=== PATIENT | male | born 1990 | race African-American/Black ===

== ENCOUNTER 2024-07-08 08:43 | Emergency (ER) | payer OTHER ==
[~2024-07-08] VITALS: Ht 182.9 cm; Wt 104.5 kg
[2024-07-08 08:48] VITALS: BP 116/74; PULSE 68; RESP 18; TEMP 98.9; O2SAT 99
[2024-07-08 09:15] LABS: APPEARANCE,URINE CLEAR (CLEAR); BILIRUBIN,URINE NEGATIVE (NEGATIVE); COLOR,URINE LIGHT YELLOW (YELLOW); GLUCOSE, URINE (UA) NEGATIVE (NEGATIVE); KETONES,URINE NEGATIVE (NEGATIVE); LEUKOCYTE ESTERASE ,URINE NEGATIVE (NEGATIVE); NITRATE,URINE NEGATIVE (NEGATIVE); OCCULT BLOOD,URINE NEGATIVE (NEGATIVE); PH,URINE 7.5 (5.0-8.0); PROTEIN,URINE TRACE mg/dL (NEGATIVE); SPECIFIC GRAVITIY, URINE 1.025 (1.003-1.030); UROBILINOGEN,URINE <=1.0 mg/dL (<=1.0)
[2024-07-08 09:16] LABS: BASOPHILS % (AUTO) 1.4 % (0.0-2.0); EOSINOPHILS % (AUTO) 1.4 % (1.0-6.0); HEMATOCRIT 48.9 % (41-53); HEMOGLOBIN 15.7 g/dL (13.5-17.5); LYMPHOCYTES # (AUTO) 1.3 K/uL (1.0-4.8); LYMPHOCYTES % (AUTO) 36.8 % (22.0-44.0); MEAN CORPUSCULAR HEMOGLOBIN 27.3 pg (26.0-34.0); MEAN CORPUSCULAR HGB CONC 32.1 G/dL (31.0-37.0); MEAN CORPUSCULAR VOLUME 85 fL (80-100); MONOCYTES # (AUTO) 0.6 K/uL (0.1-1.0); MONOCYTES % (AUTO) 17.3 % (2.0-9.0); NEUTROPHILS # (AUTO) 1.5 K/uL (1.8-7.7); NEUTROPHILS % (AUTO) 43.1 % (40.0-70.0); PLATELET COUNT (AUTO) 146 K/uL (150-450); RED BLOOD CELL COUNT(AUTO) 5.75 MIL/uL (4.50-5.90); RED CELL DISTRIBUTION WIDTH 14.3 % (11.5-14.5); WHITE BLOOD COUNT (AUTO) 3.5 K/uL (4.5-11.0)
[2024-07-08 09:19] LABS: ANION GAP 6 mmol/L (8-16); CALCIUM, TOTAL 8.5 mg/dL (8.8-10.5); CARBON DIOXIDE 28 mmol/L (22-29); CHLORIDE 106 mmol/L (98-107); CREATININE 1.04 mg/dL (0.60-1.30); GLOMERULAR FILTR. RATE CALC > 60 mL/min (>60); GLUCOSE,RANDOM 84 mg/dL (70-110); LIPASE 28 U/L (16-77); POTASSIUM 4.3 mmol/L (3.5-5.1); SODIUM SERUM 140 mmol/L (136-145); UREA NITROGEN, BLOOD 11 mg/dL (7-18)
[2024-07-08] MEDS ORDERED: PHEN16.233 PO (09:47)
[2024-07-08] MEDS ORDERED: OMEP20 PO (09:47)
[2024-07-08] MEDS ORDERED: ACET-66 PO (09:47)
== END 2024-07-08 10:09 | disposition home or self-care (01) ==
LOC: EMS 08:49
DX: R10.30 Lower abdominal pain, unspecified (principal); R30.9 Painful micturition, unspecified; K21.9 Gastro-esophageal reflux disease without esophagitis; Z79.899 Other long term (current) drug therapy
CPT/HCPCS: 80048; 81003; 82962; 83690; 85025; 99283

== ENCOUNTER 2024-12-25 19:57 | Emergency (ER) | payer OTHER ==
[~2024-12-25] VITALS: Ht 185.4 cm; Wt 112.0 kg
[~2024-12-25 19:57] MED LIST: ACET-66 PO; OMEP-148 PO; PHEN16.233 PO
[2024-12-25 20:21] VITALS: BP 135/96; PULSE 64; RESP 16; TEMP 98.8; O2SAT 100
[2024-12-25] MEDS: MAG HYDROX/ALUMINUM HYD/SIMETH 30 ML SUSPENSION UDCUP PO ONE (22:26)
[2024-12-25] MEDS: OMEPRAZOLE 20 MG CAPSULE PO ONE (22:26)
[2024-12-25] MEDS ORDERED: PANT-31 PO (22:49)
== END 2024-12-25 22:58 | disposition home or self-care (01) ==
LOC: EMS 19:59
DX: K21.9 Gastro-esophageal reflux disease without esophagitis (principal); Z98.890 Other specified postprocedural states; Z79.899 Other long term (current) drug therapy
CPT/HCPCS: 99283

== ENCOUNTER 2025-04-04 08:52 | Emergency (ER) | payer OTHER ==
[~2025-04-04] VITALS: Ht 182.9 cm; Wt 104.5 kg
[~2025-04-04 08:52] MED LIST changes: +PANT-31 PO
[2025-04-04 08:56] VITALS: TEMP 98
[2025-04-04 09:20] LABS: PLATELET COUNT (AUTO) 149 K/uL (150-450); RED BLOOD CELL COUNT(AUTO) 6.01 MIL/uL (4.50-5.90); RED CELL DISTRIBUTION WIDTH 13.8 % (11.5-14.5); WHITE BLOOD COUNT (AUTO) 4.2 K/uL (4.5-11.0)
[2025-04-04 09:27] LABS: CALCIUM, TOTAL 8.9 mg/dL (8.8-10.5); CREATININE 0.98 mg/dL (0.60-1.30); GLOMERULAR FILTR. RATE CALC > 60 mL/min (>60); GLUCOSE,RANDOM 91 mg/dL (70-110); SODIUM SERUM 137 mmol/L (136-145); UREA NITROGEN, BLOOD 11 mg/dL (7-18)
[2025-04-04 09:41] LABS: PLATELET MORPHOLOGY COMMENT GIANT PLTS PRESENT
[2025-04-04 10:31] LABS: APPEARANCE,URINE CLEAR (CLEAR); GLUCOSE, URINE (UA) NEGATIVE (NEGATIVE); LEUKOCYTE ESTERASE ,URINE NEGATIVE (NEGATIVE); NITRATE,URINE NEGATIVE (NEGATIVE); OCCULT BLOOD,URINE NEGATIVE (NEGATIVE); SPECIFIC GRAVITIY, URINE 1.022 (1.003-1.030)
[2025-04-04] MEDS: KETOROLAC TROMETHAMINE 60 MG/2 ML VIAL IM ONE (11:49)
[2025-04-04 15:13] VITALS: BP 126/84; PULSE 62; RESP 18; O2SAT 99
[2025-04-04] MEDS ORDERED: IBUP-1492 PO (15:30)
[2025-04-04] MEDS ORDERED: METH-659 PO (15:30)
== END 2025-04-04 15:46 | disposition home or self-care (01) ==
LOC: EMS 08:56
DX: R10.A2 Flank pain, left side (principal); K21.9 Gastro-esophageal reflux disease without esophagitis; Z98.890 Other specified postprocedural states; Z79.899 Other long term (current) drug therapy
CPT/HCPCS: 99283; 80048; 81003; 83690; 85025; 36415; 96372; J1885